=== PATIENT | male | born 2000 | race Hispanic/Latino ===

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

== ENCOUNTER 2020-12-28 09:01 | Emergency (ER) | payer OTHER ==
[2020-12-28] MEDS ORDERED: KETOROLAC TROMETHAMINE 15MG/ML ONE (09:24)
== END 2020-12-28 10:06 | disposition home or self-care (01) ==
LOC: EDH 09:01
DX: H60.91 Unspecified otitis externa, right ear (principal); H61.22 Impacted cerumen, left ear; Z79.899 Other long term (current) drug therapy
CPT/HCPCS: 96372; 99283; J1885